=== PATIENT | female | born 1955 | race Caucasian/White ===

== ENCOUNTER 2020-05-25 07:00 | Outpatient (CLI) | payer OTHER | END 2020-05-25 23:59 | disposition home or self-care (01) | LOC: COV 07:00 | PROVIDERS: ATTEND Family Medicine | DX: R06.02 Shortness of breath (principal); R09.81 Nasal congestion; Z20.822 Contact with and (suspected) exposure to COVID-19 ==

== ENCOUNTER 2021-05-04 17:23 | Emergency (ER) | payer MEDICARE, OTHER ==
[2021-05-04] MEDS ORDERED: SODIUM CHLORIDE 0.9% 1,000 ML IV STA (17:50)
[2021-05-04] MEDS ORDERED: ONDANSETRON 4 MG/2 ML VIAL IVP STA (17:50)
[2021-05-04] MEDS ORDERED: KETOROLAC 30 MG/ML VIAL IVP STA (17:50)
--- NOTE | 2021-05-04 17:52 | ED Physician Documentation ---
History of Present Illness - Stated complaint Stated Complaint: N/V/H/CHILLS/D/SOA/HARIS - Chief complaint Chief Complaint: General - History obtained from History obtained from: Patient - Additonal information Additional information: Relatively healthy 66-year-old woman, takes spironolactone as her only prescribed medication. She got back from [place] about 2 weeks ago and over the next couple of days developed dry cough, sore throat, runny nose, body aches, chills without measured fevers. Her whole family got sick with a similar illness it sounds like but everybody tested negative for Covid with a home test. She has been vaccinated. Today was worse because she is more short of breath and developed nausea and one episode of vomiting. Review of Systems Ten Systems: 10 systems reviewed and negative Constitutional: reports: Chills Ears: reports: Reviewed and negative Nose: reports: Rhinorrhea / runny nose Throat: reports: Sore throat Cardiac: denies: Chest pain / pressure, Palpitations, Pedal edema, Calf pain Respiratory: reports: Dyspnea, Cough PD PAST MEDICAL HISTORY - Allergies Allergies/Adverse Reactions: Allergies Allergy/AdvReac Type Severity Reaction Status Date / Time No Known Drug Allergies Allergy Verified 05/04/21 17:40 PD ED PE NORMAL - Vitals Vital signs reviewed: Yes - General General: Alert and oriented X 3, No acute distress - HEENT HEENT: PERRL, EOMI - Neck Neck: Supple, no meningeal sign, No bony TTP - Cardiac Cardiac: RRR, No murmur - Respiratory Respiratory: Clear bilaterally, Other (Mildly tachypneic at rest, speaking in full sentences though.) - Abdomen Abdomen: Non tender - Back Back: No CVA TTP - Derm Derm: Normal color, Warm and dry - Extremities Extremities: No edema, No calf tenderness / cord - Neuro Neuro: Alert and oriented X 3, experimental technician 2-12 intact, Normal speech Results - Vitals Vitals: Vital Signs - 24 hr 05/04/21 17:34 Temperature 36.8 C Heart Rate 96 Respiratory 20 Rate Blood Pressure 149/55 H O2 Saturation 95 Oxygen O2 Source Room air - Labs Labs: Laboratory Tests 05/04/21 05/04/21 05/04/21 17:21 17:21 17:21 WBC 11.4 H RBC 4.73 Hgb 13.4 Hct 42.3 MCV 89.4 MCH 28.3 MCHC 31.7 L RDW 13.8 Plt Count 195 MPV 9.6 Neut # (Auto) Not Reportable Lymph # (Auto) Not Reportable Bond # (Auto) Not Reportable Eos # (Auto) Not Reportable Baso # (Auto) Not Reportable Absolute Nucleated RBC Not Reportable Total Counted 100 Band Neuts % (Manual) 1 Abnorm Lymph % (Manual) 0 Nucleated RBC % Not Reportable Neutrophils # (Manual) 10.1 H Lymphocytes # (Manual) 0.9 L Monocytes # (Manual) 0.1 Eosinophils # (Manual) 0.1 Basophils # (Manual) 0.1 Differential Comment MANUAL DIFFERENTIAL WBC Morphology NORMAL APPEARANCE Platelet Estimate NORMAL (130-450,000) Platelet Morphology NORMAL APPEARANCE RBC Morph Micro Appear NORMAL APPEARANCE D-Dimer 236.6 Sodium 133 L Potassium 3.7 Chloride 104 Carbon Dioxide 21 Anion Gap 8.0 BUN 18 Creatinine 0.7 Estimated GFR (MDRD) 84 L Glucose 130 H Calcium 9.4 Total Bilirubin 0.4 AST 24 ALT 25 Alkaline Phosphatase 78 Troponin I High Sens Total Protein 7.4 Albumin 3.6 Globulin 3.8 Albumin/Globulin Ratio 0.9 L Urine Color Urine Clarity Urine pH Ur Specific Drury Urine Protein Urine Glucose (UA) Urine Ketones Urine Occult Blood Urine Nitrite Urine Bilirubin Urine Urobilinogen Ur Leukocyte Esterase Urine RBC Urine WBC Ur Squamous Epith Cells Urine Bacteria Ur Microscopic Review Urine Culture Comments Nasal Adenovirus (PCR) Nasal B. parapertussis DNA (PCR) Nasal Coronavir 229E PCR Nasal Coronavir HKU1 PCR Nasal Coronavir NL63 PCR Nasal Coronavir OC43 PCR Nasal Enterovir/Rhinovir PCR Nasal Influenza B PCR Nasal Influenza A PCR Nasal Parainfluen 1 PCR Nasal Parainfluen 2 PCR Nasal Parainfluen 3 PCR Nasal Parainfluen 4 PCR Nasal RSV (PCR) Nasal B.pertussis DNA PCR Nasal C.pneumoniae (PCR) Alexx Human Metapneumo PCR Nasal M.pneumoniae (PCR) Nasal SARS-CoV-2 (PCR) 05/04/21 05/04/21 05/04/21 17:21 18:07 18:32 WBC RBC Hgb Hct MCV MCH MCHC RDW Plt Count MPV Neut # (Auto) Lymph # (Auto) Bond # (Auto) Eos # (Auto) Baso # (Auto) Absolute Nucleated RBC Total Counted Band Neuts % (Manual) Abnorm Lymph % (Manual) Nucleated RBC % Neutrophils # (Manual) Lymphocytes # (Manual) Monocytes # (Manual) Eosinophils # (Manual) Basophils # (Manual) Differential Comment WBC Morphology Platelet Estimate Platelet Morphology RBC Morph Micro Appear D-Dimer Sodium Potassium Chloride Carbon Dioxide Anion Gap BUN Creatinine Estimated GFR (MDRD) Glucose Calcium Total Bilirubin AST ALT Alkaline Phosphatase Troponin I High Sens 4.7 Total Protein Albumin Globulin Albumin/Globulin Ratio Urine Color YELLOW Urine Clarity HAZY Urine pH 7.5 Ur Specific Drury 1.020 Urine Protein 100 H Urine Glucose (UA) NEGATIVE Urine Ketones NEGATIVE Urine Occult Blood NEGATIVE Urine Nitrite NEGATIVE Urine Bilirubin NEGATIVE Urine Urobilinogen 1 (NORMAL) Ur Leukocyte Esterase NEGATIVE Urine RBC 0-5 Urine WBC 0-3 Ur Squamous Epith Cells RARE Squamous Urine Bacteria Rare Ur Microscopic Review INDICATED Urine Culture Comments NOT INDICATED Nasal Adenovirus (PCR) NOT DETECTED Nasal B. parapertussis DNA (PCR) NOT DETECTED Nasal Coronavir 229E PCR NOT DETECTED Nasal Coronavir HKU1 PCR NOT DETECTED Nasal Coronavir NL63 PCR NOT DETECTED Nasal Coronavir OC43 PCR NOT DETECTED Nasal Enterovir/Rhinovir PCR NOT DETECTED Nasal Influenza B PCR NOT DETECTED Nasal Influenza A PCR NOT DETECTED Nasal Parainfluen 1 PCR NOT DETECTED Nasal Parainfluen 2 PCR NOT DETECTED Nasal Parainfluen 3 PCR NOT DETECTED Nasal Parainfluen 4 PCR NOT DETECTED Nasal RSV (PCR) NOT DETECTED Nasal B.pertussis DNA PCR NOT DETECTED Nasal C.pneumoniae (PCR) NOT DETECTED Alexx Human Metapneumo PCR NOT DETECTED Nasal M.pneumoniae (PCR) NOT DETECTED Nasal SARS-CoV-2 (PCR) DETECTED A PD MEDICAL DECISION MAKING - ED course ED course: 66-year-old woman who presents with what sounds like a nonspecific viral syndrome, recent travel but overall despite her shortness of breath it really does not sound like thromboembolic disease but will check a D-dimer. Could be atypical [place] but doubt. Covid is still a possibility but she had 2 negative antigen test at home so that is unlikely. 66-year-old woman with typical viral syndrome who test positive for Covid here despite testing negative at home. She declined prescription pain medications. Departure - Departure Disposition: 01 Home, Self Care Clinical Impression: COVID-19 Condition: Good Record reviewed to determine appropriate education?: Yes Instructions: ED Viral Syndrome Comments: You are found today to have Covid. You need to quarantine strictly for 14 days after symptom onset as does everyone in your household despite the negative Covid testing at home. Return for new or worsening symptoms or if pulse oximetry drops below 90%.
[2021-05-04] MEDS ORDERED: KETOROLAC 15 MG/ML VIAL IVP STA (17:53)
[2021-05-04 18:33] LABS: BASOPHILS % (AUTO) 0.1 %; HCT - HEMATOCRIT 42.3 % (37.0-47.0); HGB - HEMOGLOBIN 13.4 g/dL (12.0-16.0); LYMPHOCYTES % (AUTO) 5.1 %; MEAN CORPUSCULAR HEMOGLOBIN 28.3 pg (27.0-31.0); MEAN CORPUSCULAR HGB CONC 31.7 g/dL (32.0-36.0); MEAN CORPUSCULAR VOLUME 89.4 fL (81.0-99.0); MEAN PLATELET VOLUME 9.6 fL (7.9-10.8); MONOCYTES % (AUTO) 3.9 %; NEUTROPHILS % (AUTO) 90.5 %; PLT - PLATELET COUNT 195 10^3/uL (130-450); RED BLOOD COUNT 4.73 10^6/uL (4.20-5.40); RED CELL DISTRIBUTION WIDTH 13.8 % (12.0-15.0); WHITE BLOOD COUNT 11.4 x10^3/uL (4.8-10.8)
[2021-05-04 18:35] LABS: ABNORMAL LYMPHS % (MANUAL) 0 %
[2021-05-04 18:48] LABS: ALBUMIN 3.6 g/dL (3.2-5.5); ALBUMIN/GLOBULIN RATIO 0.9 (1.0-2.2); BILIRUBIN,TOTAL 0.4 mg/dL (0.2-1.0); CALCIUM 9.4 mg/dL (8.5-10.3); CREATININE 0.7 mg/dL (0.4-1.0); POTASSIUM 3.7 mmol/L (3.5-5.0); TOTAL PROTEIN 7.4 g/dL (6.7-8.2)
[2021-05-04 18:51] LABS: BILIRUBIN,URINE NEGATIVE (NEGATIVE); GLUCOSE, URINE (UA) NEGATIVE (NEGATIVE); KETONES,URINE (UA) NEGATIVE (NEGATIVE); LEUKOCYTE ESTERASE, URINE NEGATIVE (NEGATIVE); NITRITE,URINE NEGATIVE (NEGATIVE); OCCULT BLOOD,URINE NEGATIVE (NEGATIVE); PH,URINE 7.5 PH (5.0-7.5); PROTEIN,URINE 100 mg/dL (NEGATIVE); UROBILINOGEN,URINE 1 (NORMAL) E.U./dL (NORMAL)
[2021-05-04 19:00] LABS: CLARITY,URINE HAZY (CLEAR)
[2021-05-04 19:15] LABS: BACTERIA,URINE Rare /HPF (None Seen); RBC,URINE 0-5 /HPF (0-5); SQUAMOUS EPITHELIAL CELL,UR RARE Squamous (<= Few); WBC,URINE 0-3 /HPF (0-5)
[2021-05-04 19:32] LABS: BAND NEUTROPHILS % (MANUAL) 1 %; BASOPHILS # (MANUAL) 0.1 10^3/uL (0-0.1); BASOPHILS % (MANUAL) 1 %; DIFFERENTIAL COMMENT MANUAL DIFFERENTIAL; EOSINOPHILS # (MANUAL) 0.1 10^3/uL (0-0.7); LYMPHOCYTES # (MANUAL) 0.9 10^3/uL (1.5-3.5); LYMPHOCYTES % (MANUAL) 8 %; MONOCYTES # (MANUAL) 0.1 10^3/uL (0.0-1.0); NEUTROPHILS # (MANUAL) 10.1 10^3/uL (1.5-6.6); PLATELET ESTIMATE, MANUAL NORMAL (130-450,000) (NORMAL); PLATELET MORPHOLOGY NORMAL APPEARANCE (NORMAL); RBC MORPHOLOGY (MULTIPLE) NORMAL APPEARANCE (NORMAL); WBC MORPHOLOGY (MULTIPLE) NORMAL APPEARANCE (NORMAL)
[2021-05-04 19:45] LABS: B. PARAPERTUSSIS- RESP PCR PAN NOT DETECTED; B. PERTUSSIS- RESP PCR PANEL NOT DETECTED; CORONAVIRUS 229E-RESP PCR NOT DETECTED; CORONAVIRUS HKU1-RESP PCR NOT DETECTED; CORONAVIRUS NL63-RESP PCR NOT DETECTED; CORONAVIRUS OC43-RESP PCR NOT DETECTED; HUMAN METAPNEUMOVIRUS NOT DETECTED; INFLUENZA A- RESP PCR PANEL NOT DETECTED; INFLUENZA B - RESP PCR PANEL NOT DETECTED; PARAINFLUENZA VIRUS 1 NOT DETECTED; PARAINFLUENZA VIRUS 2 NOT DETECTED; PARAINFLUENZA VIRUS 3 NOT DETECTED; PARAINFLUENZA VIRUS 4 NOT DETECTED; RHINOVIRUS/ENTEROVIRUS NOT DETECTED; RSV- RESP PCR PANEL NOT DETECTED; SARS-CoV-2 -RESP PCR PANEL DETECTED
[2021-05-04 19:46] LABS: C. PNEUMONIAE- RESP PCR PANEL NOT DETECTED; M. PNEUMONIAE- RESP PCR PANEL NOT DETECTED
[2021-05-04 20:03] VITALS: BP 122/57
== END 2021-05-04 20:25 | disposition home or self-care (01) ==
LOC: ED 17:23
DX: U07.1 COVID-19 (principal)
CPT/HCPCS: 0202U; 36415; 80053; 81001; 81003; 84484; 85025; 85379; 87086; 93005; 96361; 96374; 96375; 99282

== ENCOUNTER 2022-10-11 14:21 | Outpatient (CLI) | payer MEDICARE ==
--- NOTE | 2022-10-11 16:13 | XRAY Report ---
PROCEDURE: Lumbar Spine 2 View INDICATIONS: LOW BACK PAIN TECHNIQUE: 2 views of the lumbar spine were acquired. COMPARISON: X-ray SI joints 10/11/2022 FINDINGS: Bones: 5 [id number] vertebrae are present. There is trace retrolisthesis of L2 on L3. Multilev el moderate to severe degenerative disc space narrowing is present. Scattered perivertebral osteophyt es. Foraminal narrowing at L5-S1 No vertebral body compression fractures. No suspicious bony lesions. Soft tissues: Overlying bowel gas pattern is normal. No suspicious soft tissue calcifications. IMPRESSION: Degenerative changes most severe at L5-S1. Reviewed by: Berta Edmonds MD on 10/11/2022 4:12 PM PDT Approved by: Berta Edmonds MD on 10/11/2022 4:12 PM PDT Station ID: [id number]
--- NOTE | 2022-10-11 16:14 | XRAY Report ---
PROCEDURE: SI Joints INDICATIONS: LOW BACK PAIN TECHNIQUE: 3 views of the sacroiliac joints were acquired. COMPARISON: X-ray lumbar spine 10/11/2022 FINDINGS: Bones: No bony erosions or ankylosis. No suspicious bony lesions. No fractures. Soft tissues: Overlying bowel gas pattern is normal. No suspicious soft tissue densities. IMPRESSION: SI joints are patent. Reviewed by: Berta Edmonds MD on 10/11/2022 4:12 PM PDT Approved by: Berta Edmonds MD on 10/11/2022 4:12 PM PDT Station ID: [id number]
--- NOTE | 2022-10-11 16:14 | XRAY Report ---
PROCEDURE: Pelvis 1 View INDICATIONS: LOW BACK PAIN TECHNIQUE: 1 view(s) of the pelvis acquired. COMPARISON: None. FINDINGS: Bones: No fractures or dislocations. No suspicious bony lesions. Moderate bilateral degenerative hip joint space narrowing. Degenerative changes are present within the lower lumbar spine. Soft tissues: Visualized bowel gas pattern is normal. No suspicious soft tissue calcifications. IMPRESSION: Arthritic changes within the hips bilaterally as well as lower lumbar spine. Reviewed by: Berta Edmonds MD on 10/11/2022 4:13 PM PDT Approved by: Berta Edmonds MD on 10/11/2022 4:13 PM PDT Station ID: [id number]
== END 2022-10-11 14:22 | disposition home or self-care (01) ==
LOC: DI 14:21
PROVIDERS: ATTEND Physician Assistant
DX: M16.0 Bilateral primary osteoarthritis of hip (principal); M47.816 Spondylosis without myelopathy or radiculopathy, lumbar region; M47.817 Spondylosis without myelopathy or radiculopathy, lumbosacral region

== ENCOUNTER 2022-12-06 09:46 | Outpatient (CLI) | payer MEDICARE ==
--- NOTE | 2022-12-06 15:59 | DEXA Report ---
PROCEDURE: Dexa Spine and/or Hip INDICATIONS: HYPERPARATHYROIDISM, OSTEOPENIA TECHNIQUE: Dual energy x-ray absorptiometry (DXA) was performed on a [employer] System. Regions measur ed are the AP Spine, femoral neck, and if needed forearm. COMPARISON: None FINDINGS: Lumbar Spine: Bone Mineral Density 1.281 g/cm/cm,T score 0.8. Left Femoral Neck: Bone Mineral Density 0.785 g/cm/cm, T score -1.8. Left Hip: Bone Mineral Density 0.924 g/cm/cm,T score -0.7. Left Forearm: Bone Mineral Density 0.611 g/cm/cm, T score -1. (T score greater or equal to -1.0: NORMAL) (T score from -1.1 to -2.4: OSTEOPENIA) (T score less than or equal to -2.5 to: OSTEOPOROSIS) Impression: By WHO criteria, this patient has low bone density (osteopenia). Patients with diagnosis of osteoporosis or osteopenia should have regular bone mineral density assess ment. For those eligible for Medicare, routine testing is allowed once every 2 years. Testing frequ ency can be increased for patients who have rapidly progressing disease or for those who are receivin g medical therapy to restore bone mass. Reviewed by: Rico Laughlin on 12/06/2022 3:57 PM PDT Approved by: Rico Laughlin on 12/06/2022 3:57 PM PDT Station ID: [id number]
== END 2022-12-06 09:47 | disposition home or self-care (01) ==
LOC: DI 09:46
PROVIDERS: ATTEND Physician Assistant
DX: E21.3 Hyperparathyroidism, unspecified (principal); M85.80 Other specified disorders of bone density and structure, unspecified site

== ENCOUNTER 2023-04-15 11:54 | Outpatient (CLI) | payer OTHER ==
--- NOTE | 2023-04-15 15:42 | XRAY Report ---
PROCEDURE: Hip w/Pelvis 2-3V LT INDICATIONS: LEFT HIP PAIN TECHNIQUE: AP pelvis with lateral view(s) of the left hip(s). COMPARISON: X-ray pelvis 10/11/2022 FINDINGS: Bones: No fractures or dislocations. No suspicious bony lesions. Moderate bilateral degenerative hip joint space narrowing. Degenerative changes are present within th e lower lumbar spine. Soft tissues: No suspicious soft tissue calcifications or masses. IMPRESSION: Bilateral hip arthritic change. Reviewed by: Berta Edmonds MD on 04/15/2023 3:40 PM PST Approved by: Berat Edmonds MD on 04/15/2023 3:40 PM PST Station ID: [id number]
== END 2023-04-15 11:55 | disposition home or self-care (01) ==
LOC: DI 11:54
PROVIDERS: ATTEND Physician Assistant
DX: M16.0 Bilateral primary osteoarthritis of hip (principal)

== ENCOUNTER 2023-04-19 12:52 | Outpatient (CLI) | payer OTHER ==
--- NOTE | 2023-04-19 13:25 | Sleep Patient Instructions ---
Sleep Center Visit Summary - Patient Visit Information Reason for Visit: Initial consultation - Patient Instructions Additional Instructions: You will continue with CPAP therapy with pressure set at 7 cmH2O. A supply prescription will be updated with your DME. We encourage you to continue to try to lose weight. Please follow up with the sleep care office in 1 year. - Clinic Information Contact: [facility] [address] [place] [address] [email or web address] T: [phone]
--- NOTE | 2023-04-19 13:29 | SLEEP CARE CONSULTATION ---
Information from patient questionnaire entered by Yemi Leiva. I have reviewed and concur with the information entered by Yemi Leiva. This document represents the service I personally performed and the decisions made by me, Dulce Iglesias ARNP. History of Present Illness Service Date and Time: 04/19/2023 1252 Reason for Visit: New patient, Previously diagnosed sleep apnea, sleep apnea on CPAP therapy Chief Complaint: reports: Other (UPDATE SUPPLIES) Date of Onset: 2011 Usual bedtime: 11-12 Time it takes to fall asleep: 5-15 Snores at night: Yes Observed to quit breathing while asleep: No Sleeps alone due to snoring: No Number of times waking at night: 1 Reasons for waking at night: reports: Bathroom Toss, Turn, or Twitch while sleeping: Yes Recalls having dreams: Yes Usually gets out of bed at: 8AM Feels refreshed in the morning: Yes Morning headache: No Ever fallen asleep while driving: Yes Dreams during day naps: No Prior sleep studies: Yes Year and Where: 2011 [facility] Additional HPI information: JAVIER MART was previously diagnosed to have mild, AHI 14.5, obstructive sleep apnea-hypopnea syndrome as seen in PSG dated 06/10/2011 at [facility] in [place], [place] and comes in today to establish care for CPAP therapy. - Parasomnia Symptoms Ever been unable to move upon waking from sleep: No Walks in sleep: No Talks in sleep: No Ever acted out dreams in sleep: No Ever felt weak in the knees when startled or emotional: No Bothered by creepy, crawly, restless sensations in legs: Yes Problems with memory or concentration: Yes CPAP Compliance Data - Data Reviewed with Patient Average duration of nightly device use: 8 hours 4 minutes Compliance rate %: 99 (90/90 days) Current pressure setting (cmH2O): 7 Average residual AHI: 0.3 Central apnea: 0 Obstructive apnea: 0.1 Average large leak: 0.7 L/min Compliance data discussion: She has a [employer] Airsense 11, set up in 11/2021. She uses [employer] for her supplies. She uses a [employer] Zest nasal cushion mask, over the nose. She changes her nasal cushion once a month. Subjective Patient concerns: reports: condensation in mask/hose (occasionally). denies: aerophagia, mask discomfort, air blowing in eyes, mask leak noise, nasal congestion, dry mouth, nose, throat, epistaxis Observed to snore while using device: No Current pressure setting perceived as: comfortable On therapy, patient: reports: sleeping better, awakening more refreshed, being more awake and alert during the day, more rested overall. denies: drowsiness while driving Initial [place] Sleepiness Scale score: 9 (03/25/23) Past Medical History Past Medical History: reports: Hypertension, Arthritis, Arrythmia (palpitations), Hypothyroidism, Anxiety, Depression Social History The patient's occupation is a RETIRED. Patient is and lives in [place]. Have you smoked in the past 12 months: No Alcohol use: No Caffeine use: Yes Caffeine amount and frequency: 12OZ/16OZ 1-2X DAY Family History Family history of sleep disordered breathing: No Allergies and Home Medications Known drug allergies: Yes (MORPHINE, PERCOCET) Drug allergies reviewed: Yes Home medication list reviewed: Yes (as listed) Allergy and home medication list: Allergies No Known Drug Allergies Allergy (Verified 04/18/23 16:39) Home Medications Medication Instructions Recorded Confirmed Last Taken Type Acetaminophen [Tylenol] See Rx Instructions .ROUTE .COMPLEX 04/19/23 04/19/23 Unknown History Alcaftadine [Lastacaft Once Daily See Rx Instructions .ROUTE .COMPLEX 04/19/23 04/19/23 Unknown History Relief] Citalopram [CeleXA] See Rx Instructions .ROUTE .COMPLEX 04/19/23 04/19/23 Unknown History Gabapentin [Neurontin] See Rx Instructions .ROUTE .COMPLEX 04/19/23 04/19/23 Unknown History Levothyroxine Sodium [Levoxyl] See Rx Instructions .ROUTE .COMPLEX 04/19/23 04/19/23 Unknown History Losartan Potassium See Rx Instructions .ROUTE .COMPLEX 04/19/23 04/19/23 Unknown History Multivit-Min/Iron/Folic/Lutein See Rx Instructions .ROUTE .COMPLEX 04/19/23 04/19/23 Unknown History [Multivitamin Women 50 Plus Tab] Naproxen Sodium [Aleve] See Rx Instructions .ROUTE .COMPLEX 04/19/23 04/19/23 Unknown History Ubidecarenone [Co Q-10] See Rx Instructions .ROUTE .COMPLEX 04/19/23 04/19/23 Unknown History metroNIDAZOLE 0.75% GEL [Flagyl See Rx Instructions .ROUTE .COMPLEX 04/19/23 04/19/23 Unknown History Gel] Review of Systems Cardiovascular: reports: high blood pressure, palpitations Respiratory: reports: shortness of breath Urinary: reports: incontinence Neurological: reports: headaches, gait or balance problems Psychiatric: reports: anxiety, depression Ear/Nose/Throat: reports: wisdom teeth removed Endocrine: reports: thyroid disease, history of goiter, sluggishness, too hot or cold Musculoskeletal: reports: joint pain, neck pain, back pain Physical Exam Vital signs obtained and entered by: YEMI Calvo MA Blood Pressure: 138/80 (LEFT ARM) Cuff size: regular Heart Rate: 76 O2 Saturation: 98 Height: 5 ft 9 in Weight: 220 lb 6.4 oz Body Mass Index: 32.5 BMI Classification: Obese Neck circumference: 15.5 Heart: regular rate and rhythm Lungs: clear bilaterally Impression and Plan 1. Obstructive Sleep Apnea-Hypopnea Syndrome, mild, with good treatment compliance and good apnea control. On CPAP therapy, the patient has better sleep quality and is more rested overall. Patient is establishing care. Patient has significant improvement of their sleep apnea and is satisfied with current CPAP therapy. Patient denies problems with oral dryness, nasal congestion, epistaxis, skin irritation or aerophagia. I will update her supply prescription with her DME. We will follow-up with her next year. Patient's apnea severity and rationale for treatment to reduce apnea, improve sleep quality and reduce cardiovascular and cerebrovascular events was reviewed. I also reviewed the benefit of consistent device use of CPAP for hypertension, arrhythmia, depression and anxiety. 2. Obesity, unspecified. Currently patients BMI is 32.5. Obesity increases the risk of apnea, CPAP pressure requirements and overall health risks especially cardiovascular and diabetes. Thus patient is advised to lose weight. * Continue CPAP pressure at 7 cmH2O * Update supply prescription * Notify me if snoring with mask or feeling that the pressure is too much or too little * Attempt to lose weight * Call this office if any problems using CPAP * Return for follow up in 1 year, or sooner if concerns arise Counseling Topics: Spare mask, Weight loss health impact Visit Type: In Office Time Spent with Patient (minutes): 30 Provider Statement: I spent 100% of the Face to Face Visit with the patient with greater than 50% spent counseling the patient and coordination of care.
[2023-04-19 13:39] VITALS: BP 138/80; O2SAT 98
== END 2023-04-19 12:53 | disposition home or self-care (01) ==
LOC: SC 12:52
PROVIDERS: ATTEND Nurse Practitioner Family
DX: G47.33 Obstructive sleep apnea (adult) (pediatric) (principal); E66.9 Obesity, unspecified; Z68.32 Body mass index [BMI] 32.0-32.9, adult
CPT/HCPCS: 99203; 99212

== ENCOUNTER 2023-06-19 12:24 | Day surgery (SDC) | payer OTHER ==
[2023-06-19] MEDS: LACTATED RINGERS 1,000 ML IV ONE (12:41)
[2023-06-19] MEDS ORDERED: PROPOFOL 500 MG/50 ML 500 MG/50 ML VIAL ONE (12:55)
--- NOTE | 2023-06-19 13:23 | ANESTHESIA ---
Pre-Anesthesia VS, & Labs - Diagnosis HX POLYPS - Procedure COLONOSCOPY Vital Signs: Temp Pulse Resp BP Pulse Ox O2 Flow Rate 36.0 C L 66 16 175/77 H 98 06/19/23 12:37 06/19/23 12:37 06/19/23 12:37 06/19/23 12:37 06/19/23 12:37 Height: 5 ft 9 in Weight (kg): 101.2 kg Body Mass Index: 32.9 BMI Classification: Obese - NPO Last Fluid Intake: PREP 1029 - Is Patient ?: No Home Medications and Allergies Alcaftadine [Lastacaft Once Daily Relief] 1 drops EACHEYE DAILY 04/19/23 Citalopram [CeleXA] 20 mg PO DAILY 04/19/23 Gabapentin [Neurontin] 300 mg PO DAILY 04/19/23 Levothyroxine Sodium [Levoxyl] 200 mcg PO DAILY 04/19/23 Losartan Potassium 50 mg PO DAILY 04/19/23 Multivit-Min/Iron/Folic/Lutein [Multivitamin Women 50 Plus Tab] 1 tab PO DAILY 04/19/23 Naproxen Sodium [Aleve] 220 mg PO BID PRN 04/19/23 Ubidecarenone [Co Q-10] 200 mg ORAL DAILY 04/19/23 metroNIDAZOLE 0.75% GEL [Flagyl Gel] See Rx Instructions .ROUTE .COMPLEX 04/19/23 Allergies/Adverse Reactions: Allergies Allergy/AdvReac Type Severity Reaction Status Date / Time morphine AdvReac Intermediate Nausea Verified 06/18/23 14:27 oxycodone [From Percocet] AdvReac Intermediate Nausea Verified 06/18/23 14:27 Anes History & Medical History - Anesthetic History Anesthesia Complications: reports: No previous complications Family history of Anesthesia Complications: Denies Family history of Malignant Hyperthermia: Denies - Medical History Cardiovascular: reports: Hypertension (DENIES C/P , SOB, STAIRS LIMITED BY ORTHO PROBLEMS), High cholesterol Pulmonary: reports: Sleep apnea, CPAP use Gastrointestinal: reports: Colon polyps Urinary: reports: None Musculoskeletal: reports: Osteoarthritis, Osteopenia Endocrine/Autoimmune: reports: HyPOthyroidism Skin: reports: Rosacea Smoking Status: Never smoker Psychosocial: reports: Alcohol (TWICE A YEAR) - Surgical History General: reports: Colonoscopy Gynecologic: reports: Other Orthopedic: reports: Other Results - EKG Results EKG Comparison: Reviewed EKG Exam General: Alert Dental: WNL Mouth Openin Fingerbreadth Neck Mobility: Normal Mallampati classification: II Thyromental Distance: 4-6 cm Plan Anesthesia Type: Total IV Consent for Procedure(s) Verified and Reviewed: Yes Code Status: Attempt Resuscitation ASA classification: 2-Mild systemic disease Is this case an emergency?: No
[2023-06-19] MEDS: LACTATED RINGERS 200 ML IV ONE (14:18)
--- NOTE | 2023-06-19 14:25 | ANESTHESIA POST OP EVALUATION ---
Anesthesia Post Eval - Post Anesthesia Eval Vitals: Last Vital Signs Temp 36.8 C 06/19/23 14:15 Pulse 87 06/19/23 14:15 Resp 16 06/19/23 14:15 BP 130/80 06/19/23 14:15 Pulse Ox 98 06/19/23 14:15 O2 Flow Rate CV Function Including HR & BP: Stable Pain Control: Satisfactory Nausea & Vomiting: Negative Mental Status: Baseline Respiratory Status: Airway Patent Hydration Status: Satisfactory Anesthesia Complications: None
[2023-06-19 14:40] VITALS: BP 156/73; O2SAT 99
== END 2023-06-19 12:25 | disposition home or self-care (01) ==
LOC: SDS 12:24
PROVIDERS: ATTEND Surgery
PROC: 0DBK8ZZ Excision of Ascending Colon, Via Natural or Artificial Opening Endoscopic (ICD-10-PCS; principal; 2023-06-19 14:00)
DX: Z12.11 Encounter for screening for malignant neoplasm of colon (principal); K63.5 Polyp of colon; E66.9 Obesity, unspecified; Z68.32 Body mass index [BMI] 32.0-32.9, adult; G47.33 Obstructive sleep apnea (adult) (pediatric); I10 Essential (primary) hypertension
CPT/HCPCS: 45380; J7120

== ENCOUNTER 2023-08-10 08:31 | Outpatient (CLI) | payer MEDICARE, OTHER ==
--- NOTE | 2023-08-12 08:17 | MRI Report ---
PROCEDURE: Hip LT WO INDICATIONS: OSTEOARTHRITIS L HIP TECHNIQUE: Noncontrast coronal T1 spin echo and STIR through the bony pelvis. Coronal and axial T2 fast spin ec ho with fat saturation, sagittal T1 spin echo, and oblique axial T2 fast spin echo with fat saturatio n through the hip. COMPARISON: Pelvic and hip radiograph dated 04/15/2023, 10/11/2022. FINDINGS: Image quality: Excellent. Bones and joints: Mild to moderate left hip joint osteoarthritic changes are seen with superior joint space narrowing and subchondral sclerosis. There is no marrow edema. No intraosseous lesions or frac tures. No avascular necrosis of the femoral heads. The visualized lower lumbar spine appears normal ly aligned. Tendons: Low to moderate grade partial-thickness tear involving distal left gluteus minimus tendon at its insertion on greater trochanter is seen extending to musculotendinous junction with small amount of surrounding fluid. Fluid within the trochanteric bursa and bursitis cannot be excluded. Distal le ft gluteus medius minimus tendinosis is also seen. The iliopsoas tendon appears intact, without adjac ent bursal fluid collections. Tendinosis involving origins of left hamstring tendons at the ischial t uberosity. Labrum and cartilage: The acetabular labrum appears intact in the absence of intra-articular contras t. Thinning of cartilage surface over the left femoral head is seen. The alpha angle of the femur is within normal limits at less than 55 degrees. Soft tissues: There is edema within lateral portion of left adductor kate muscle at the level of ex tensive tuberosity The proximal sciatic neurovascular bundle appears normal adjacent to the hamstring tendons. No free pelvic fluid. Bladder wall thickness is normal. Genitourinary structures and bow el loops appear normal where visualized. IMPRESSION: 1. Mild to moderate left hip joint osteoarthritis. No pelvic or hip fracture. No evidence of avascula r necrosis. 2. Low to moderate grade partial-thickness tear involving distal left gluteus minimus tendon extendin g to musculotendinous junction with small to moderate amount of adjacent fluid, trochanteric bursal f luid and bursitis cannot be excluded. Distal left gluteus medius tendinosis. Tendinosis involving lef t hamstring tendon origins at ischial tuberosity. Low-grade partial-thickness tear involving lateral portion of left adductor kate muscle. 3. No gross focal labral tear. Reviewed by: Josh Rojas MD on 08/12/2023 8:15 AM PDT Approved by: Josh Rojas MD on 08/12/2023 8:15 AM PDT Station ID: [id number]
== END 2023-08-10 08:32 | disposition home or self-care (01) ==
LOC: DI 08:31
PROVIDERS: ATTEND Physical Medicine & Rehabilitation
DX: M16.12 Unilateral primary osteoarthritis, left hip (principal); S76.012A Strain of muscle, fascia and tendon of left hip, initial encounter; M67.952 Unspecified disorder of synovium and tendon, left thigh

== ENCOUNTER 2023-08-21 12:13 | Outpatient (CLI) | payer MEDICARE ==
--- NOTE | 2023-08-21 16:43 | XRAY Report ---
PROCEDURE: Chest 2V INDICATIONS: SOB TECHNIQUE: 2 views of the chest were acquired. COMPARISON: None. FINDINGS: Surgical changes and devices: None. Lungs and pleura: No pleural effusions or pneumothorax. Lungs are clear. Mediastinum: Mediastinal contours appear normal. Heart size is normal. Bones and chest wall: No suspicious bony lesions. Overlying soft tissues appear unremarkable. IMPRESSION: No acute cardiopulmonary process. Reviewed by: Briana Taylor MD on 08/21/2023 4:42 PM PDT Approved by: Briana Taylor MD on 08/21/2023 4:42 PM PDT Station ID: [id number]
== END 2023-08-21 12:14 | disposition home or self-care (01) ==
LOC: DI 12:13
PROVIDERS: ATTEND Physician Assistant
DX: R06.02 Shortness of breath (principal)

== ENCOUNTER 2023-09-23 12:53 | Outpatient (CLI) | payer MEDICARE ==
--- NOTE | 2023-09-23 17:13 | MRI Report ---
PROCEDURE: Lumbar Spine WO INDICATIONS: LUMBAR SPONDYLOSIS TECHNIQUE: Noncontrast sagittal T1 spin echo and T2 fast echo, sagittal STIR, axial T1 and T2 fast spin echo thr ough the lumbar spine. In cases with scoliosis, additional coronal T2 fast spin echo may be performe d. COMPARISON: Lumbar spine radiograph dated 10/11/2022. FINDINGS: Image quality: Excellent. Alignment and Curvature: There is normal bony alignment. Bone Marrow: Marrow is of normal overall signal. No acute vertebral body compression fractures. Spinal Cord: Conus medullaris terminates at the L1 level. Visualized cord demonstrates normal signa l and size. Paraspinous Soft Tissues: No paravertebral masses. T12-L1: Normal in appearance. L1-L2: Loss of disc height and disc signal. Central to left-sided disc herniation and diffuse disc bulge is seen with bilateral facet arthrosis. There is mild central canal stenosis and moderate left -sided neural foraminal narrowing. L2-L3: Loss of disc height and disc signal. Broad-based disc bulge and bilateral facet arthrosis c ausing [id number] central canal stenosis and bilateral neural foraminal narrowing. L3-L4: Loss of disc height and disc signal. Broad-based disc bulge and bilateral facet arthrosis wi th moderate central canal stenosis and moderate to severe bilateral neural foraminal narrowing. L4-L5: Loss of disc height and disc signal. Broad-based disc bulge and bilateral facet arthrosis wi th hypertrophy of ligamentum flavum causing [id number] central canal stenosis and moderate bila teral neural foraminal narrowing. L5-S1: Loss of disc height and disc signal. Broad-based disc bulge and bilateral facet arthrosis wi th mild central canal stenosis and bilateral neural foraminal narrowing. IMPRESSION: 1. No marrow edema. No acute compression fracture or spondylolisthesis. 2. Mild to moderate degenerative disc disease throughout lumbar spine causing various degrees of cent ral canal stenosis and bilateral neural foraminal narrowing as described above. Reviewed by: Josh Rojas MD on 09/23/2023 5:11 PM PDT Approved by: Josh Rojas MD on 09/23/2023 5:11 PM PDT Station ID: [id number]
== END 2023-09-23 12:54 | disposition home or self-care (01) ==
LOC: DI 12:53
PROVIDERS: ATTEND Physical Medicine & Rehabilitation
DX: M47.816 Spondylosis without myelopathy or radiculopathy, lumbar region (principal); M51.26 Other intervertebral disc displacement, lumbar region; M51.36 Other intervertebral disc degeneration, lumbar region; M48.061 Spinal stenosis, lumbar region without neurogenic claudication; M51.37 Other intervertebral disc degeneration, lumbosacral region; M48.07 Spinal stenosis, lumbosacral region; M47.817 Spondylosis without myelopathy or radiculopathy, lumbosacral region

== ENCOUNTER 2023-09-24 13:20 | Outpatient (CLI) | payer MEDICARE ==
[2023-09-24] MEDS: ALBUTEROL 1 PUFF INH STA (14:51)
== END 2023-09-24 13:21 | disposition home or self-care (01) ==
LOC: RT 13:20
PROVIDERS: ATTEND Physician Assistant
DX: R06.02 Shortness of breath (principal)
CPT/HCPCS: 94060; 94727; 94729

== ENCOUNTER 2023-11-25 12:11 | Outpatient (CLI) | payer MEDICARE, OTHER ==
--- NOTE | 2023-11-26 09:50 | XRAY Report ---
PROCEDURE: Chest 2V INDICATIONS: DYSPNEA TECHNIQUE: 2 views of the chest were acquired. COMPARISON: 08/21/2023 x-ray chest. FINDINGS: Surgical changes and devices: None. Lungs and pleura: No pleural effusions or pneumothorax. Lungs are clear. Mediastinum: Mediastinal contours appear normal. Heart size is normal. Bones and chest wall: DISH changes of the spine. Osteopenia. IMPRESSION: No acute cardiopulmonary abnormality seen. Reviewed by: Shan Ruiz MD on 11/26/2023 9:48 AM PDT Approved by: Shan Ruiz MD on 11/26/2023 9:48 AM PDT Station ID: [id number]
== END 2023-11-25 12:12 | disposition home or self-care (01) ==
LOC: DI 12:11
PROVIDERS: ATTEND Physician Assistant
DX: R06.09 Other forms of dyspnea (principal)

== ENCOUNTER 2023-12-12 13:25 | Outpatient (CLI) | payer MEDICARE | END 2023-12-12 13:26 | disposition home or self-care (01) | LOC: RT 13:25 | PROVIDERS: ATTEND Physician Assistant | DX: R06.09 Other forms of dyspnea (principal) | CPT/HCPCS: 94010; 94727; 94729 ==

== ENCOUNTER 2024-01-21 13:01 | Outpatient (CLI) | payer MEDICARE ==
--- NOTE | 2024-01-29 15:31 | Mammography Report ---
BILATERAL DIGITAL SCREENING MAMMOGRAM 3D/2D WITH EXAGGERATED CC: 01/21/2024 CLINICAL: Routine screening. No prior exams were available for comparison. The breasts are heterogeneously dense, which may obscure small masses (category c / 51-75% glandular tissue). There is a biopsy clip in both breasts. No significant masses, calcifications, or other findings are seen in either breast. IMPRESSION: NEGATIVE There is no mammographic evidence of malignancy. A 1 year screening mammogram is recommended. Based on the Tyrer Cuzick model (a risk assessment model) the patient's lifetime risk is 6.4% and her 10 year risk is 3.3%. According to the ACR, ACS, and NCCN guidelines, an annual breast MRI exam shayy g with mammogram is recommended if the patient's lifetime risk is 20% or greater. This exam was interpreted at Station ID: [id number]. NOTE: For mammograms, a report in lay terms will be sent to the patient. Approximately 15% of breast malignancies will not be visualized mammographically. In the management of a palpable breast mass, a negative mammogram must not discourage biopsy of a clinically suspicious lesion. Electronically Signed By: Raji parikh/clarisa:01/28/2024 10:13:24 letter sent: No_Letter ACR BI-RADS Category 1: Negative 3341F PARENCHYMAL PATTERN: (D) - The breast(s) demonstrate(s) heterogeneously dense fibroglandular prince willis. BI-RADS CATEGORY: (1) - 1 RECOMMENDATION: (ANNUAL) - Recommend routine annual screening mammography. [id number] 1 year screening LATERALITY: (B)
== END 2024-01-21 13:02 | disposition home or self-care (01) ==
LOC: DI 13:01
PROVIDERS: ATTEND Student in an Organized Health Care Education/Training Program
DX: Z12.31 Encounter for screening mammogram for malignant neoplasm of breast (principal); R92.333 Mammographic heterogeneous density, bilateral breasts